=== PATIENT | female | born 1975 | race Two or more races ===

== ENCOUNTER 2019-12-11 19:06 | Inpatient (IN) | payer OTHER ==
[~2019-12-11] VITALS: Ht 160 cm; Wt 113.1 kg
[2019-12-11] MEDS ORDERED: ACETAMINOPHEN 500 MG TABLET ONE ×2 (19:41→20:48)
--- NOTE | 2019-12-11 19:44 | NUR ---
APAP IN TRIAGE
--- NOTE | 2019-12-11 19:48 | NUR ---
NO EKG NEEDED PER PA
--- NOTE | 2019-12-11 19:57 | NUR ---
LATE ENTRY FOR TIME OF TRIAGE:PT REFUSED FLU SWAB IN TRIAGE
[2019-12-11] MEDS ORDERED: SODIUM CHLORIDE 0.9% 1,000ML IVBOLUS ONE ×2 (20:00→21:30)
[2019-12-11] MEDS ORDERED: ACETAMINOPHEN 325 MG TABLET PO ONE (20:00)
[2019-12-11] MEDS ORDERED: ACETAMINOPHEN 500 MG TABLET PO ONE (20:00)
[2019-12-11] MEDS ORDERED: SODIUM CHLORIDE FLUSH 10ML SYR IVF ONE (20:00)
[2019-12-11] MEDS ORDERED: KETOROLAC 30 MG/1 ML IVPush ONE (20:00)
[2019-12-11 20:24] LABS: BASOPHILS % (AUTO) 0 % (0-1); EOSINOPHILS % (AUTO) 0 % (1-7); LYMPHOCYTES # (AUTO) 0.57 x10^3/uL (1-3.4); LYMPHOCYTES % (AUTO) 4 % (22-44); MD NO; MEAN CORPUSCULAR HEMOGLOBIN 23.5 pg (27.0-34.8); MEAN CORPUSCULAR VOLUME 73.5 fL (80-100); MEAN PLATELET VOLUME 9.5 fL (7.4-10.4); MONOCYTES # (AUTO) 0.57 x10^3/uL (0.2-0.8); MONOCYTES % (AUTO) 4 % (2-9); NEUTROPHILS # (AUTO) 14.35 x10^3/uL (1.8-6.8); NEUTROPHILS % (AUTO) 93 % (42-75); PLATELET COUNT 220 x10^3/uL (130-400); RED BLOOD COUNT 4.13 x10^6/uL (3.82-5.3)
[2019-12-11 20:39] LABS: ALANINE AMINOTRANSFERASE 29 U/L (12-78); ALBUMIN 2.9 g/dL (3.4-5.0); ALKALINE PHOSPHATASE 86 U/L (45-117); ANION GAP 10 mmol/L (5-15); BILIRUBIN,TOTAL 1.6 mg/dL (0.2-1.0); CHLORIDE 103 mmol/L (98-107); CREATININE 1.55 mg/dL (0.55-1.02); TOTAL PROTEIN 6.7 g/dL (6.4-8.2)
[2019-12-11] MEDS ORDERED: KETOROLAC 30 MG/1 ML ONE (20:48)
[2019-12-11] MEDS ORDERED: POTASSIUM CHLORIDE 40 MEQ in SODIUM CHLORIDE 0.9% 500 ML IV ONE (21:00)
[2019-12-11] MEDS ORDERED: POTASSIUM CHLORIDE 20 MEQ TAB.ER.PRT PO ONE (21:00)
[2019-12-11] MEDS ORDERED: OMNIPAQUE 350 MG/ML, 100ML BOTTLE ONE (21:43)
[2019-12-11] MEDS ORDERED: VANCOMYCIN PER PHARMACY MC ONE (22:30)
[2019-12-11] MEDS ORDERED: PIPERACILLIN/TAZO/PMX 3.375GM 50 ML IVPB ONE (22:30)
[2019-12-11] MEDS ORDERED: SODIUM CHLORIDE 0.9% 1,000 ML IV ONE (22:46)
[2019-12-11] MEDS ORDERED: VANCOMYCIN 2,000 MG in SODIUM CHLORIDE 0.9% 500 ML IV ONE (23:00)
[2019-12-11 23:03] LABS: CULTURE INDICATED? YES; MICROSCOPIC INDICATED
[2019-12-11] MEDS ORDERED: PIPERACILLIN/TAZO/PMX 3.375GM 50 ML ONE (23:03)
[2019-12-11 23:09] LABS: AMPHETAMINE SCREEN, URINE Negative (Negative); BARBITURATE SCREEN, URINE Negative (Negative); BENZODIAZEPINE SCREEN, URINE Negative (Negative); CANNABINOID SCREEN, URINE Negative (Negative); COCAINE SCREEN, URINE Negative (Negative); METHADONE SCREEN, URINE Negative (Negative); OPIATE SCREEN, URINE Negative (Negative)
[2019-12-11] MEDS ORDERED: POLYETHYLENE GLYCOL 17 GM PACKET PO PRN (23:30)
[2019-12-11] MEDS ORDERED: BISACODYL 10 MG SUPP PR PRN (23:30)
[2019-12-11 23:50] VITALS: BP 124/81
[2019-12-12] MEDS ORDERED: CEFTRIAXONE PMX 1GM/50ML 50 ML IV SCH
[2019-12-12] MEDS: ACETAMINOPHEN 325 MG TABLET PO PRN ×4 (00:41→18:06)
[2019-12-12] MEDS: HEPARIN 5,000 UNITS/ML, 1ML SQ SCH ×3 (00:42→16:34)
[2019-12-12] MEDS: SODIUM CHLORIDE 0.9% 1,000 ML IV SCH ×3 (01:14→21:29)
[2019-12-12 02:58] VITALS: BP 118/80
[2019-12-12] MEDS: OXYcodone IR 5MG TABLET PO PRN ×2 (04:44→13:10)
[2019-12-12 05:38] LABS: BASOPHILS % (AUTO) 0 % (0-1); EOSINOPHILS # (AUTO) 0.02 x10^3/uL (0-0.4); EOSINOPHILS % (AUTO) 0 % (1-7); LYMPHOCYTES % (AUTO) 4 % (22-44); MD NO; MEAN CORPUSCULAR HEMOGLOBIN 23.5 pg (27.0-34.8); MEAN CORPUSCULAR HGB CONC 32.1 g/dL (32.4-35.8); MEAN CORPUSCULAR VOLUME 73.2 fL (80-100); MONOCYTES % (AUTO) 7 % (2-9); NEUTROPHILS # (AUTO) 9.59 x10^3/uL (1.8-6.8); NEUTROPHILS % (AUTO) 90 % (42-75); PLATELET COUNT 174 x10^3/uL (130-400); RED BLOOD COUNT 3.78 x10^6/uL (3.82-5.3); RED CELL DISTRIBUTION WIDTH 20.2 % (9.6-15.2)
[2019-12-12 05:43] LABS: ANION GAP 8 mmol/L (5-15); CALCIUM 7.4 mg/dL (8.5-10.1); CHLORIDE 111 mmol/L (98-107); CREATININE 0.88 mg/dL (0.55-1.02)
[2019-12-12] MEDS: ONDANSETRON ODT 4 MG PO PRN ×2 (06:07→12:58)
[2019-12-12 07:42] VITALS: BP 150/93
[2019-12-12] MEDS: LISINOPRIL 5 MG TABLET PO SCH (07:50)
[2019-12-12] MEDS: POTASSIUM CHLORIDE 20 MEQ TAB.ER.PRT PO SCH ×2 (07:50→16:32)
[2019-12-12] MEDS: SENNA/DOCUSATE TABLET PO SCH (07:53)
[2019-12-12] MEDS ORDERED: MAGNESIUM SULFATE PMX 4GM/100M 100 ML IV ONE (09:00)
[2019-12-12] MEDS: IRON SUCROSE COMPLEX 100MG/5ML IV SCH (09:43)
[2019-12-12 13:10] VITALS: BP 158/85
[2019-12-12 19:32] VITALS: BP 136/89
[2019-12-12] MEDS: ONDANSETRON 2MG/ML, 2ML IVPush PRN (19:35)
[2019-12-13 01:23] VITALS: BP 148/93
[2019-12-13] MEDS: HEPARIN 5,000 UNITS/ML, 1ML SQ SCH ×3 (02:09→17:47)
[2019-12-13] MEDS: CEFTRIAXONE PMX 2GM/50ML 50 ML IV SCH (02:09)
[2019-12-13] MEDS: OXYcodone IR 5MG TABLET PO PRN ×3 (02:11→21:05)
[2019-12-13] MEDS: ACETAMINOPHEN 325 MG TABLET PO PRN ×2 (02:24→15:12)
[2019-12-13 04:40] LABS: BASOPHILS % (AUTO) 0 % (0-1); EOSINOPHILS # (AUTO) 0.04 x10^3/uL (0-0.4); EOSINOPHILS % (AUTO) 0 % (1-7); LYMPHOCYTES # (AUTO) 0.87 x10^3/uL (1-3.4); LYMPHOCYTES % (AUTO) 9 % (22-44); MD NO; MEAN CORPUSCULAR HEMOGLOBIN 23.5 pg (27.0-34.8); MEAN CORPUSCULAR HGB CONC 32.1 g/dL (32.4-35.8); MEAN CORPUSCULAR VOLUME 73.2 fL (80-100); MEAN PLATELET VOLUME 9.7 fL (7.4-10.4); MONOCYTES # (AUTO) 0.84 x10^3/uL (0.2-0.8); MONOCYTES % (AUTO) 9 % (2-9); NEUTROPHILS # (AUTO) 8.04 x10^3/uL (1.8-6.8); NEUTROPHILS % (AUTO) 82 % (42-75); PLATELET COUNT 201 x10^3/uL (130-400); RED BLOOD COUNT 3.54 x10^6/uL (3.82-5.3); RED CELL DISTRIBUTION WIDTH 20.7 % (9.6-15.2)
[2019-12-13 04:53] LABS: ANION GAP 7 mmol/L (5-15); CALCIUM 7.7 mg/dL (8.5-10.1); CHLORIDE 109 mmol/L (98-107); CREATININE 0.78 mg/dL (0.55-1.02)
[2019-12-13] MEDS: SODIUM CHLORIDE 0.9% 1,000 ML IV SCH ×2 (07:25→15:12)
[2019-12-13 07:48] VITALS: BP 138/89
[2019-12-13] MEDS: IRON SUCROSE COMPLEX 100MG/5ML IV SCH (08:34)
[2019-12-13] MEDS: POTASSIUM CHLORIDE 20 MEQ TAB.ER.PRT PO SCH ×2 (08:35→17:46)
[2019-12-13] MEDS: LISINOPRIL 5 MG TABLET PO SCH (08:35)
[2019-12-13] MEDS ORDERED: POTASSIUM CHLORIDE 20 MEQ TAB.ER.PRT PO ONE (09:00)
[2019-12-13] MEDS: SENNA/DOCUSATE TABLET PO SCH (09:05)
[2019-12-13 12:49] VITALS: BP 164/100
[2019-12-13 20:17] VITALS: BP 168/106
[2019-12-13 20:18] VITALS: BP 165/113
[2019-12-13 20:56] VITALS: BP 153/89
[2019-12-13] MEDS ORDERED: SODIUM CHLORIDE 0.9% 1,000 ML IV SCH (23:01)
[2019-12-14] MEDS: HEPARIN 5,000 UNITS/ML, 1ML SQ SCH ×3 (01:48→17:19)
[2019-12-14] MEDS: CEFTRIAXONE PMX 2GM/50ML 50 ML IV SCH (01:48)
[2019-12-14] MEDS: ACETAMINOPHEN 325 MG TABLET PO PRN (01:48)
[2019-12-14 03:06] VITALS: BP_SYST 105; BP_SYST 134; BP_DIAS 67; BP_DIAS 72
[2019-12-14 05:13] LABS: BASOPHILS # (AUTO) 0.03 x10^3/uL (0-0.1); BASOPHILS % (AUTO) 0 % (0-1); EOSINOPHILS # (AUTO) 0.17 x10^3/uL (0-0.4); EOSINOPHILS % (AUTO) 2 % (1-7); LYMPHOCYTES # (AUTO) 1.79 x10^3/uL (1-3.4); LYMPHOCYTES % (AUTO) 19 % (22-44); MD NO; MEAN CORPUSCULAR HEMOGLOBIN 23.5 pg (27.0-34.8); MEAN CORPUSCULAR HGB CONC 32.2 g/dL (32.4-35.8); MEAN CORPUSCULAR VOLUME 73.1 fL (80-100); MEAN PLATELET VOLUME 9.6 fL (7.4-10.4); MONOCYTES # (AUTO) 0.89 x10^3/uL (0.2-0.8); MONOCYTES % (AUTO) 9 % (2-9); NEUTROPHILS # (AUTO) 6.83 x10^3/uL (1.8-6.8); NEUTROPHILS % (AUTO) 70 % (42-75); PLATELET COUNT 216 x10^3/uL (130-400); RED BLOOD COUNT 3.61 x10^6/uL (3.82-5.3); RED CELL DISTRIBUTION WIDTH 20.4 % (9.6-15.2)
[2019-12-14 05:24] LABS: ANION GAP 8 mmol/L (5-15); CHLORIDE 109 mmol/L (98-107)
[2019-12-14 05:25] LABS: CREATININE 0.77 mg/dL (0.55-1.02)
[2019-12-14 07:41] VITALS: BP 162/103
[2019-12-14] MEDS: POTASSIUM CHLORIDE 20 MEQ TAB.ER.PRT PO SCH ×2 (07:55→17:19)
[2019-12-14] MEDS: LISINOPRIL 5 MG TABLET PO SCH (07:55)
[2019-12-14] MEDS: SENNA/DOCUSATE TABLET PO SCH (07:56)
[2019-12-14] MEDS: IRON SUCROSE COMPLEX 100MG/5ML IV SCH (07:56)
[2019-12-14] MEDS: ONDANSETRON ODT 4 MG PO PRN (08:04)
[2019-12-14 09:32] VITALS: BP 157/105
[2019-12-14] MEDS ORDERED: hydrALAzine 20 MG/ML, 1ML IV PRN (10:00)
[2019-12-14] MEDS: LACTOBACILLUS CHEW TABLET PO SCH ×3 (10:14→22:05)
[2019-12-14] MEDS: CHLORTHALIDONE 25 MG TABLET PO SCH (10:15)
[2019-12-14 10:52] VITALS: BP 153/92
[2019-12-14] MEDS ORDERED: ACETAMINOPHEN 325 MG TABLET PO PRN (11:30)
[2019-12-14 13:16] VITALS: BP 157/100
[2019-12-14 21:30] VITALS: BP 164/90
[2019-12-15] VITALS (7 sets, daily range): BP systolic 155–175; BP diastolic 90–122
[2019-12-15] MEDS: CEFTRIAXONE PMX 2GM/50ML 50 ML IV SCH (01:27)
[2019-12-15] MEDS: HEPARIN 5,000 UNITS/ML, 1ML SQ SCH ×3 (01:28→17:22)
[2019-12-15] MEDS: OXYcodone IR 5MG TABLET PO PRN ×2 (02:02→08:02)
[2019-12-15] MEDS: LACTOBACILLUS CHEW TABLET PO SCH ×5 (06:33→20:16)
[2019-12-15] MEDS: POTASSIUM CHLORIDE 20 MEQ TAB.ER.PRT PO SCH (08:01)
[2019-12-15] MEDS: LISINOPRIL 5 MG TABLET PO SCH (08:01)
[2019-12-15] MEDS: CHLORTHALIDONE 25 MG TABLET PO SCH (08:01)
[2019-12-15] MEDS: SENNA/DOCUSATE TABLET PO SCH (08:02)
[2019-12-15] MEDS: FERROUS SULFATE 325 MG TABLET PO SCH ×4 (08:02→16:53)
[2019-12-15 09:16] LABS: CLOSTRIDIUM DIFFICILE ANTIGEN NEGATIVE; CLOSTRIDIUM DIFFICILE TOXIN NEGATIVE (Negative)
[2019-12-15] MEDS: ONDANSETRON 2MG/ML, 2ML IVPush PRN (10:47)
[2019-12-15] MEDS ORDERED: PROMETHAZINE 25 MG/ML, 1ML IM PRN (13:30)
[2019-12-15] MEDS: LISINOPRIL 10 MG TABLET PO SCH (20:16)
[2019-12-16 02:30] VITALS: BP 146/89
[2019-12-16] MEDS: CEFTRIAXONE PMX 2GM/50ML 50 ML IV SCH (03:53)
[2019-12-16] MEDS: HEPARIN 5,000 UNITS/ML, 1ML SQ SCH ×3 (03:54→18:02)
[2019-12-16] MEDS: LACTOBACILLUS CHEW TABLET PO SCH ×4 (05:27→20:46)
[2019-12-16 07:46] VITALS: BP 155/103
[2019-12-16] MEDS: SENNA/DOCUSATE TABLET PO SCH (09:00)
[2019-12-16] MEDS: FERROUS SULFATE 325 MG TABLET PO SCH ×3 (09:39→18:01)
[2019-12-16] MEDS: CHLORTHALIDONE 25 MG TABLET PO SCH (09:39)
[2019-12-16] MEDS: LISINOPRIL 10 MG TABLET PO SCH ×2 (09:40→20:46)
[2019-12-16 15:23] VITALS: BP 145/94
[2019-12-16 20:33] VITALS: BP 169/101
[2019-12-16 21:04] VITALS: BP 151/93
[2019-12-17 01:39] VITALS: BP 149/89
[2019-12-17] MEDS: HEPARIN 5,000 UNITS/ML, 1ML SQ SCH ×2 (02:31→10:05)
[2019-12-17] MEDS: CEFTRIAXONE PMX 2GM/50ML 50 ML IV SCH (02:31)
[2019-12-17] MEDS: LACTOBACILLUS CHEW TABLET PO SCH ×2 (05:34→10:05)
[2019-12-17 06:49] LABS: ANION GAP 9 mmol/L (5-15); CALCIUM 8.6 mg/dL (8.5-10.1); CHLORIDE 104 mmol/L (98-107)
[2019-12-17 06:51] LABS: CREATININE 0.69 mg/dL (0.55-1.02)
[2019-12-17 06:54] LABS: MEAN CORPUSCULAR HEMOGLOBIN 23.3 pg (27.0-34.8); MEAN CORPUSCULAR HGB CONC 31.7 g/dL (32.4-35.8); MEAN CORPUSCULAR VOLUME 73.4 fL (80-100); MEAN PLATELET VOLUME 9.5 fL (7.4-10.4); PLATELET COUNT 308 x10^3/uL (130-400); RED BLOOD COUNT 4.13 x10^6/uL (3.82-5.3); RED CELL DISTRIBUTION WIDTH 20.8 % (9.6-15.2)
[2019-12-17 07:26] VITALS: BP 151/89
[2019-12-17] MEDS: SENNA/DOCUSATE TABLET PO SCH (07:38)
[2019-12-17] MEDS: LISINOPRIL 10 MG TABLET PO SCH (07:39)
[2019-12-17] MEDS: CHLORTHALIDONE 25 MG TABLET PO SCH (07:39)
[2019-12-17] MEDS: FERROUS SULFATE 325 MG TABLET PO SCH ×2 (07:39→12:16)
[2019-12-17 07:47] LABS: BASOPHILS # (AUTO) 0.03 x10^3/uL (0-0.1); BASOPHILS % (AUTO) 0 % (0-1); EOSINOPHILS # (AUTO) 0.19 x10^3/uL (0-0.4); EOSINOPHILS % (AUTO) 2 % (1-7); LYMPHOCYTES # (AUTO) 2.67 x10^3/uL (1-3.4); LYMPHOCYTES % (AUTO) 22 % (22-44); MD SCAN; MONOCYTES # (AUTO) 0.67 x10^3/uL (0.2-0.8); MONOCYTES % (AUTO) 5 % (2-9); NEUTROPHILS # (AUTO) 8.87 x10^3/uL (1.8-6.8); NEUTROPHILS % (AUTO) 71 % (42-75)
[2019-12-17] MEDS ORDERED: POTASSIUM CHLORIDE 20 MEQ TAB.ER.PRT PO SCH (08:00)
[2019-12-17 12:09] LABS: ANA SCREEN NEGATIVE (Negative)
[2019-12-17] MEDS ORDERED: FERR-51 PO (13:31)
[2019-12-17] MEDS ORDERED: LISI-167 PO (13:31)
[2019-12-17] MEDS ORDERED: CHLO25TA PO (13:31)
[2019-12-17] MEDS ORDERED: LEVO750T26 PO (13:31)
[2019-12-17] MEDS ORDERED: ACID1TAB7 PO (13:31)
[2019-12-17 14:03] VITALS: BP 138/88
== END 2019-12-17 15:30 | disposition home or self-care (01) | DRG 871 ==
LOC: ED 21:23 → EDIP 22:56 → 4EST 23:44 → DCLOUNGE 12-17 15:08
PROVIDERS: ADMIT Internal Medicine; ATTEND Internal Medicine
DX: A41.51 Sepsis due to Escherichia coli [E. coli] (principal); N17.0 Acute kidney failure with tubular necrosis; R65.21 Severe sepsis with septic shock; E87.2 Acidosis; J90 Pleural effusion, not elsewhere classified; N12 Tubulo-interstitial nephritis, not specified as acute or chronic; Z68.41 Body mass index [BMI] 40.0-44.9, adult; E66.01 Morbid (severe) obesity due to excess calories; E87.6 Hypokalemia; D50.9 Iron deficiency anemia, unspecified; E74.39 Other disorders of intestinal carbohydrate absorption; E83.42 Hypomagnesemia; I10 Essential (primary) hypertension; Z60.2 Problems related to living alone; R73.9 Hyperglycemia, unspecified; N92.0 Excessive and frequent menstruation with regular cycle; Z83.3 Family history of diabetes mellitus; Z71.3 Dietary counseling and surveillance; Z90.49 Acquired absence of other specified parts of digestive tract; Z79.899 Other long term (current) drug therapy
CPT/HCPCS: 36415; 71045; 71275; 72131; 80048; 80053; 80307; 81001; 82728; 83036; 83540; 83550; 83605; 83735; 84145; 84443; 84703; 85025; 85379; 85651; 86038; 86140; 86430; 87040; 87077; 87086; 87186; 87324; 93005; 93306; 96365; 96366; 96368; G0378; J0696; J1644; J1756; J1885; J2405; J2550; J3370; J3480; Q0162; Q9967; J0360; J3475; J7030; J7040

== ENCOUNTER 2020-11-13 15:13 | Outpatient (CLI) | payer OTHER ==
[~2020-11-13 15:13] MED LIST: ACID1TAB7 PO; CHLO25TA PO; FERR-51 PO; LEVO750T26 PO; LISI-167 PO
[2020-11-13] MEDS ORDERED: LISI-170 PO (15:36)
[2020-11-13] MEDS ORDERED: FISH OIL PO (15:36)
[2020-11-13] MEDS ORDERED: PRENATAL PO (15:36)
[2020-11-13] MEDS ORDERED: ALPR1TAB2 PO (15:36)
[2020-11-13] MEDS ORDERED: SERT100T PO (15:36)
[2020-11-13] MEDS ORDERED: LURA40TA PO (15:36)
[2020-11-13] MEDS ORDERED: BIRTH CONTROL PO (15:36)
[2020-11-13 16:54] LABS: MICROSCOPIC INDICATED
[2020-11-13 16:59] LABS: ALBUMIN 3.5 g/dL (3.4-5.0); ANION GAP 7 mmol/L (5-15); CALCIUM 9.3 mg/dL (8.5-10.1); CHLORIDE 109 mmol/L (98-107)
[2020-11-13 17:04] LABS: ALANINE AMINOTRANSFERASE 167 U/L (12-78); ALKALINE PHOSPHATASE 69 U/L (45-117); BILIRUBIN,TOTAL 0.5 mg/dL (0.2-1.0); CREATININE 0.98 mg/dL (0.55-1.02); TOTAL PROTEIN 7.5 g/dL (6.4-8.2)
[2020-11-13 17:07] LABS: BASOPHILS % (AUTO) 0 % (0-1); EOSINOPHILS % (AUTO) 2 % (1-7); LYMPHOCYTES % (AUTO) 28 % (22-44); MEAN CORPUSCULAR HEMOGLOBIN 23.7 pg (27.0-34.8); MEAN CORPUSCULAR HGB CONC 32.1 g/dL (32.4-35.8); MONOCYTES % (AUTO) 7 % (2-9); NEUTROPHILS % (AUTO) 63 % (42-75); PLATELET COUNT 356 x10^3/uL (130-400); RED BLOOD COUNT 4.63 x10^6/uL (3.82-5.3); RED CELL DISTRIBUTION WIDTH 19.9 % (9.6-15.2)
[2020-11-13 17:08] LABS: MD NO
== END 2020-11-13 23:59 | disposition home or self-care (01) ==
LOC: STAR 15:13
PROVIDERS: ATTEND Obstetrics & Gynecology Gynecology
DX: Z01.812 Encounter for preprocedural laboratory examination (principal); Z20.828 Contact with and (suspected) exposure to other viral communicable diseases; N93.9 Abnormal uterine and vaginal bleeding, unspecified; N84.0 Polyp of corpus uteri
CPT/HCPCS: 71046; 80053; 81001; 84702; 85025; 87635; 93005

== ENCOUNTER 2020-11-19 10:30 | Day surgery (SDC) | payer OTHER ==
[~2020-11-19] VITALS: Ht 160 cm; Wt 109.8 kg
[~2020-11-19 10:30] MED LIST changes: +ALPR1TAB2 PO; +BIRTH CONTROL PO; +FISH OIL PO; +LISI-170 PO; +LURA40TA PO; +PRENATAL PO; +SERT100T PO
[2020-11-19 11:00] VITALS: BP 163/102
[2020-11-19] MEDS ORDERED: CHLORHEXIDINE 15 ML UDC MM ONE (11:00)
[2020-11-19] MEDS ORDERED: LACTATED RINGERS 1,000 ML IV SCH (11:00)
[2020-11-19] MEDS ORDERED: AMLO-150 PO (11:04)
[2020-11-19 11:06] LABS: HCG UR SG 1.028 (1.003-1.030)
[2020-11-19] MEDS ORDERED: SILVER NITRATE STICK TP ONE (11:40)
[2020-11-19] MEDS ORDERED: MIDAZOLAM 1 MG/ML, 2ML ONE (11:45)
[2020-11-19] MEDS ORDERED: PROPOFOL 10 MG/ML, 20ML ONE (11:45)
[2020-11-19] MEDS ORDERED: FENTANYL PF 250 MCG/5ML ONE (11:45)
[2020-11-19] MEDS ORDERED: LABETALOL 5MG/ML, 20ML IV PRN (12:00)
[2020-11-19] MEDS ORDERED: ONDANSETRON 2MG/ML, 2ML IVPush PRN (12:00)
[2020-11-19] MEDS ORDERED: DIPHENHYDRAMINE 50 MG/ML, 1ML IVPush PRN (12:00)
[2020-11-19] MEDS ORDERED: ACETAMINOPHEN 325 MG TABLET PO PRN (12:00)
[2020-11-19] MEDS ORDERED: PROMETHAZINE 25 MG/ML, 1ML IVPush PRN (12:00)
[2020-11-19] MEDS ORDERED: OXYcodone 5 MG/5 ML ORAL.SOL UDC PO PRN (12:00)
[2020-11-19] MEDS ORDERED: hydrALAzine 20 MG/ML, 1ML IV PRN (12:00)
[2020-11-19] MEDS ORDERED: HYDROmorphone 1 MG/ML, 1ML INJ IVPush PRN (12:00)
[2020-11-19] MEDS ORDERED: MEPERIDINE/PF 25MG/0.5ML IVPush PRN (12:00)
[2020-11-19] MEDS ORDERED: DIAZEPAM 5 MG/ML, 2ML IVPush PRN (12:00)
[2020-11-19] MEDS ORDERED: hydrALAzine 20 MG/ML, 1ML ONE (12:07)
[2020-11-19] MEDS ORDERED: ROCURONIUM 10MG/ML,5ML ONE (12:25)
[2020-11-19] MEDS ORDERED: ONDANSETRON 2MG/ML, 2ML ONE (12:25)
[2020-11-19] MEDS ORDERED: SUGAMMADEX 200 MG/2 ML IVPush ONE (12:25)
[2020-11-19] MEDS ORDERED: CARBOPROST TROMETHAMINE 250 MCG/ML, 1ML IM ONE (12:44)
[2020-11-19] MEDS ORDERED: MISOPROSTOL 200 MCG TABLET ONE (12:44)
[2020-11-19] MEDS ORDERED: OXYcodone 5 MG/5 ML ORAL.SOL UDC ONE (13:12)
[2020-11-19] MEDS ORDERED: FENTANYL PF 100 MCG/2ML ONE (13:12)
[2020-11-19] MEDS: FENTANYL PF 100 MCG/2ML IV PRN ×2 (13:15→13:22)
[2020-11-19] MEDS ORDERED: HYDROmorphone 1 MG/ML, 1ML INJ ONE (13:39)
== END 2020-11-19 15:15 | disposition home or self-care (01) ==
LOC: OUT 10:30
PROVIDERS: ATTEND Obstetrics & Gynecology Gynecology
DX: N93.8 Other specified abnormal uterine and vaginal bleeding (principal); N84.0 Polyp of corpus uteri; I10 Essential (primary) hypertension; Z79.899 Other long term (current) drug therapy; Z72.89 Other problems related to lifestyle; Z82.49 Family history of ischemic heart disease and other diseases of the circulatory system; Z83.3 Family history of diabetes mellitus; Z80.1 Family history of malignant neoplasm of trachea, bronchus and lung; Z98.890 Other specified postprocedural states
CPT/HCPCS: 58558; 81025; 88305; J0360; J1170; J2250; J2405; J2704; J3010; J7120